=== PATIENT | female | born 2000 | race Caucasian/White ===

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

== ENCOUNTER 2019-07-21 12:42 | Emergency (ER) | payer OTHER ==
[~2019-07-21] VITALS: Ht 160 cm; Wt 58.1 kg
[~2019-07-21 12:42] MED LIST: PERCOCET 5-3251 EACH PO
[2019-07-21] MEDS ORDERED: LOW OGESTREL (13:40)
== END 2019-07-21 19:10 | disposition home or self-care (01) ==
LOC: ER 12:42
DX: K60.1 Chronic anal fissure (principal)